=== PATIENT | female | born 1995 | race Caucasian/White ===

== ENCOUNTER 2017-07-02 23:14 | Emergency (ER) | payer BC ==
[~2017-07-02] VITALS: Ht 167.6 cm; Wt 54.5 kg
[2017-07-02 23:16] VITALS: BP 130/79; PULSE 104; RESP 16; TEMP 98.8; O2SAT 100
[2017-07-02] MEDS ORDERED: ZOFR4TAB PO (23:22)
--- NOTE | 2017-07-03 00:11 | PD ---
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 for pelvic ultrasound to rule out ectopic . As per patient, this is her first . Reports that her first day of her last menstrual cycle was May 05, 2017 - she is a little less than 9 weeks at this time. Patient reports that she has been having intermittent RLQ abdominal cramping with some vaginal spotting for the past 2 weeks. Patient had an initial workup by Dr. Canales at [facility], HCG quant is 96,981. Patient was sent to [facility] for pelvic ultrasound [facility] Past Medical History Medical History: Denies Significant Hx Reproductive: Yes (OVARIAN CYSTS) ?: Unknown LMP: 05/05/2017 Past Surgical History Surgical History: No Previous Surgery Social History Alcohol Use: No Tobacco Use: No Substance Use: No Allergies-Medications (Allergen,Severity, Reaction): Coded Allergies: No Known Allergies (Unverified , 07/02/17) Reported Meds & Prescriptions Reported Meds & Active Scripts Active Reported Zofran (Ondansetron HCl) 4 Mg Tab 4 Mg PO Q12HR PRN Review of Systems General / Constitutional: No: Fever Eyes: No: Visual changes HENT: No: Headaches Cardiovascular: No: Chest Pain or Discomfort Respiratory: No: Shortness of Breath Gastrointestinal: Positive: Abdominal Pain Genitourinary: Positive: Pelvic Pain, Vaginal Bleeding, No: Dysuria, Discharge Musculoskeletal: No: Pain Skin: No Rash Neurologic: No: Weakness Psychiatric: No: Depression Endocrine: No: Polydipsia Hematologic/Lymphatic: No: Easy Bruising Physical Exam Narrative GENERAL: mild distress SKIN: Focused skin assessment warm/dry. HEAD: Atraumatic. Normocephalic. EYES: Pupils equal and round. No scleral icterus. No injection or drainage. ENT: No nasal bleeding or discharge. Mucous membranes pink and moist. NECK: Trachea midline. No JVD. CARDIOVASCULAR: Regular rate and rhythm. No murmur appreciated. RESPIRATORY: No accessory muscle use. Clear to auscultation. Breath sounds equal bilaterally. GASTROINTESTINAL: Abdomen soft, non-tender, nondistended. Hepatic and splenic margins not palpable. MUSCULOSKELETAL: No obvious deformities. No clubbing. No cyanosis. No edema. NEUROLOGICAL: Awake and alert. No obvious cranial nerve deficits. Motor grossly within normal limits. Normal speech. PSYCHIATRIC: Appropriate mood and affect; insight and judgment normal. Data Data Last Documented VS Vital Signs Date Time Temp Pulse Resp B/P (MAP) Pulse Ox O2 Delivery O2 Flow Rate FiO2 07/02/17 23:16 98.8 104 16 130/79 (96) 100 Room Air Orders Orders Us Pelvis (Ques Pr/Ect)W Trans (07/02/17 ) Gc And Chlamydia Pcr (07/03/17 00:07) Iv Access Insert/Monitor (07/03/17 00:09) Ecg Monitoring (07/03/17 00:09) Oximetry (07/03/17 00:09) Sodium Chlor 0.9% 1000 Ml Inj (Ns 1000 M (07/03/17 00:15) Ceftriaxone Inj (Rocephin Inj) (07/03/17 00:15) MDM Medical Decision Making Medical Screen Exam Complete: Yes Emergency Medical Condition: Yes Medical Record Reviewed: Yes Interpretation(s) Vital Signs Date Time Temp Pulse Resp B/P (MAP) Pulse Ox O2 Delivery O2 Flow Rate FiO2 07/02/17 23:16 98.8 104 16 130/79 (96) 100 Room Air Differential Diagnosis Ectopic versus threatened miscarriage Narrative Course During the course of the patients emergency department visit, the patients history, examination, and differential diagnosis were reviewed with the patient. The patient was placed on a diagnostic cardiac sonographer with oximetry and frequent blood pressure monitoring. The patient had an IV access obtained and blood work sent for analysis. The patient was initially provided IVF The patients laboratory studies were reviewed and remarkable for WBC 8.6, hemoglobin 12.5, hematocrit 35.8, platelets 273 Sodium 139, potassium 3.3, carbon dioxide 25, BUN 9, creatinine 0.60 HCG Quant 96,981 UA positive for moderate bacteria, 3-5 white blood cells, negative nitrites, negative leuk esterase urine culture sent. Patient was given 1 dose of IV antibiotics in the emergency room for treatment of possible UTI. Radiology studies were reviewed and remarkable for: pending and signed out to physician at change of shift Diagnosis Primary Impression: UTI (urinary tract infection) Patient Instructions: General Instructions Additional Instructions: Please provide patient with a copy of their lab work and studies at discharge* * Please follow up with your primary care doctor in 2-3 days Return to the ER if symptoms worsen or progress Return to the ER as needed Pelvic rest until you are seen and cleared by your trestle builder Med/Other Pt SpecificInfo: Prescription(s) given Narcisa Gonzalez DO Jul 03, 2017 00:11
[2017-07-03] MEDS ORDERED: SODIUM CHLOR 0.9% 1000 ML INJ 1,000 ML IV ONE (00:15)
[2017-07-03] MEDS ORDERED: cefTRIAXone INJ 1,000 MG in SODIUM CHLORIDE 0.9% INJ 100 ML IV ONE (00:15)
[2017-07-03] MEDS ORDERED: MACR100C2 PO (02:35)
--- NOTE | 2017-07-03 02:35 | PD ---
Physical Exam Narrative Patient was seen by ED physician and signed out to me. Data Data Last Documented VS Vital Signs Date Time Temp Pulse Resp B/P (MAP) Pulse Ox O2 Delivery O2 Flow Rate FiO2 07/03/17 02:55 07/02/17 23:16 98.8 104 16 100 Room Air Orders Orders Us Pelvis (Ques Pr/Ect)W Trans (07/02/17 ) Gc And Chlamydia Pcr (07/03/17 00:07) Iv Access Insert/Monitor (07/03/17 00:09) Ecg Monitoring (07/03/17 00:09) Oximetry (07/03/17 00:09) Sodium Chlor 0.9% 1000 Ml Inj (Ns 1000 M (07/03/17 00:15) Ceftriaxone Inj (Rocephin Inj) (07/03/17 00:15) Ed Discharge Order (07/03/17 02:31) Labs Laboratory Tests Test 07/03/17 00:25 Chlamydia trachomatis DNA (PCR) NOT DETECTED Neisseria gonorrhoeae DNA (PCR) NOT DETECTED MDM Supervised Visit with [facility]: No Diagnosis Primary Impression: Pelvic pain during Additional Impression: Bacteriuria Patient Instructions: General Instructions Additional Instruction: Please provide patient with a copy of their lab work and studies at discharge* * Please follow up with your primary care doctor in 2-3 days Return to the ER if symptoms worsen or progress Return to the ER as needed Pelvic rest until you are seen and cleared by your oven drier tender Return if increasing pelvic pain, increase vaginal bleeding. Scripts Nitrofurantoin Monohydrate Macrocrystals (Macrobid) 100 Mg Cap 100 MG PO BID for Infection, #14 CAP 0 Refills Prov: Saroj Sellers MD 07/03/17 Disposition: 01 DISCHARGE HOME Condition: Stable Saroj Sellers MD Jul 03, 2017 02:35
--- NOTE | 2017-07-03 02:57 | RADRPT ---
EXAM DATE/TIME: 07/03/2017 01:58 [place] COMPARISON: No previous studies available for comparison. INDICATIONS : Pelvic pain and vaginal spotting. LAB(S): Beta-hC MEDICAL HISTORY : . Ovarian cysts. SURGICAL HISTORY : None. ENCOUNTER: Initial ACUITY: 1 day PAIN SCORE: 3/10 LOCATION: Bilateral pelvis MEASUREMENTS: UTERUS: 10.4 x 5.9 x 8.8 cm ENDOMETRIAL STRIPE: 12 mm RIGHT OVARY: 3.1 x 1.8 x 1.7 cm LEFT OVARY: 3.3 x 2.6 x 2.6 cm FREE FLUID: No CROWN RUMP LENGTH: 1.5 cm = 7 WKS 6 DAYS FHR: 169 BPM FINDINGS: Gestational sac, yolk sac and pole seen in the uterine cavity. [place]-rump length is approximate ly 1.52 cm, gestational age 7 weeks 6 days. heart tones are demonstrated. There is an approxima tely 4.2 x 1.1 x 1.1 cm heterogeneous fluid collection adjacent to the gestational sac compatible wit h a subchorionic hemorrhage. 16mm left ovarian cyst. The right ovary is normal. There is no free fluid. CONCLUSION: 1. Single, viable intrauterine at approximate 7 weeks 6 days gestational age. 2. Subchorionic hemorrhage. 3. 16mm corpus luteal cyst of the left nerve root. 4. Normal right ovary. 5. No free fluid. John Suh MD on July 03, 2017 at 2:54 Board Certified Radiologist. This report was verified electronically.
== END 2017-07-03 02:56 | disposition home or self-care (01) ==
LOC: NEPD 23:14 → NEPC 07-03 02:56
DX: O26.891 Other specified pregnancy related conditions, first trimester (principal); O23.41 Unspecified infection of urinary tract in pregnancy, first trimester; O34.81 Maternal care for other abnormalities of pelvic organs, first trimester; N83.202 Unspecified ovarian cyst, left side; Z3A.01 Less than 8 weeks gestation of pregnancy
CPT/HCPCS: 76700; 76817; 80053; 81001; 84702; 85025; 87086; 87491; 87591; 96360; 96365; 96366; 99284; 99285; J0696; J7030

== ENCOUNTER 2017-08-17 17:35 | Inpatient (IN) | payer BC, MEDICAID, OTHER ==
[~2017-08-17] VITALS: Ht 167.6 cm; Wt 62.0 kg
[~2017-08-17 17:35] MED LIST: MACR100C2 PO; ZOFR4TAB PO; ZOLO50TA PO
[2017-08-17 18:18] VITALS: BP 112/65; PULSE 77; RESP 15; O2SAT 99
--- NOTE | 2017-08-17 18:41 | PD ---
HPI Chief Complaint: Suicide Ideation/Attempt Time Seen by Provider: 18:30 Travel History International Travel<30 days: No Contact w/Intl Traveler<30days: No Traveled to known affect area: No History of Present Illness HPI Patient seen and examined by me, transferred from [facility] for suicidal ideation and planning, she is currently under a voluntary status of 15 weeks . She states that she was thinking about taking a bunch of pills at home today. Calm and cooperative with exam she denies any chest pain shortness of breath abdominal pain nausea vomiting PFSH Past Medical History Depression: Yes Reproductive: Yes (OVARIAN CYSTS) ?: Social History Alcohol Use: No Tobacco Use: No Substance Use: No Allergies-Medications (Allergen,Severity, Reaction): Coded Allergies: No Known Allergies (Unverified , 08/17/17) Reported Meds & Prescriptions Reported Meds & Active Scripts Active Reported Zoloft (Sertraline HCl) 50 Mg Tab 50 Mg PO DAILY Zofran (Ondansetron HCl) 4 Mg Tab 4 Mg PO Q12HR PRN Review of Systems Except as stated in HPI: all other systems reviewed are Neg Physical Exam Narrative GENERAL: Well-developed and nourished in no obvious distress SKIN: Focused skin assessment warm/dry. HEAD: Atraumatic. Normocephalic. EYES: Pupils equal and round. No scleral icterus. No injection or drainage. ENT: No nasal bleeding or discharge. Mucous membranes pink and moist. NECK: Trachea midline. No JVD. CARDIOVASCULAR: Regular rate and rhythm. No murmur appreciated. RESPIRATORY: No accessory muscle use. Clear to auscultation. Breath sounds equal bilaterally. GASTROINTESTINAL: Abdomen soft, non-tender, nondistended. Hepatic and splenic margins not palpable. Gravid abdomen MUSCULOSKELETAL: No obvious deformities. No clubbing. No cyanosis. No edema. NEUROLOGICAL: Awake and alert. No obvious cranial nerve deficits. Motor grossly within normal limits. Normal speech. PSYCHIATRIC: Depressed mood, normal affect, endorses suicidal ideation with planning, denies audiovisual hallucinations. Data Data Last Documented VS Vital Signs Date Time Temp Pulse Resp B/P (MAP) Pulse Ox O2 Delivery O2 Flow Rate FiO2 08/17/17 18:18 77 15 112/65 (81) 99 Orders Orders Psych Screen (08/17/17 18:13) Diet Regular Basic (2/15/18 Breakfast) MDM Medical Decision Making Medical Screen Exam Complete: Yes Emergency Medical Condition: Yes Differential Diagnosis Suicidal ideation with planning, , ectopic unlikely. Narrative Course Patient seen and examined by me, has already been seen and evaluated at [facility], 15 weeks , she has no complaints of abdominal pain vaginal bleeding vaginal discharge, already medically cleared by ER physician there and transferred here for psychiatric evaluation. Her labs were drawn at [facility]. At this time she has no physical complaints and remissions to remain under a voluntary status and understands she will wait until the morning. She is medically cleared for psychiatric evaluation and disposition. Please see previous providers notes from [facility] for further information Diagnosis Primary Impression: Suicidal ideation Condition: Stable Luis M Quezada MD Aug 17, 2017 18:41
--- NOTE | 2017-08-18 09:46 | PD.CONS ---
History & Physical H&P OB consult This is 22-year-old white female at [address] Joseph was for obstetric care now presents as a transfer from [place] for admission to the psych unit for evaluation and therapy of suicidal ideation with Tylenol, she's been cleared medically [place] was transferred here for admission voluntarily. No obstetric problems at this time Exam- uterus size equal dates nontender no vaginal bleeding she has had minimal vaginal discharge. Impression--15 week intrauterine with suicidal ideation now in the psychiatric lees Plan-check obstetric ultrasound patient may be given antipsychotic medications as needed, would avoid lithium at is as it is teratogenic otherwise of most of the medications can be used as needed, will notify Dr. Joseph that her patient is in the hospital Blake Perez II, MD Aug 18, 2017 09:46
[2017-08-18 16:39] VITALS: BP 118/71; PULSE 86; RESP 17; TEMP 98.1
[2017-08-19 06:16] VITALS: BP 104/60; PULSE 86; RESP 18; TEMP 97.6; O2SAT 99
[2017-08-19] MEDS ORDERED: MAGNESIUM HYDROXIDE SUSP 30 ML CUP PO PRN (14:00)
[2017-08-19] MEDS ORDERED: ACETAMINOPHEN 325 MG TAB PO PRN (14:00)
[2017-08-19] MEDS ORDERED: ALUMINUM/MAGNESIUM/SIMETH 30 ML CUP PO PRN (14:00)
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
[2017-08-19 18:00] VITALS: BP 119/71; PULSE 93; RESP 14; TEMP 98.2; O2SAT 100
--- NOTE | 2017-08-19 23:35 | EKG ---
Date Performed: 08/19/2017 Time Performed: 08:18:19 PTAGE: 22 years EKG: Sinus rhythm INCOMPLETE RIGHT BUNDLE BRANCH BLOCK BORDERLINE ECG NO PREVIOUS TRACING DOCTOR: Cristin Phan Interpretating Date/Time 08/19/2017 23:34:47
[2017-08-20] MEDS: MULTIVIT/MIN/PREN/FOL AC/IRON PRENATAL TAB PO SCH (08:59)
[2017-08-20] MEDS: SERTRALINE HCL 50 MG TAB PO SCH (08:59)
--- NOTE | 2017-08-20 12:40 | HHI.PYPN ---
Subjective Chief Complaint: depression vague suicidality Remarks Patient was seen and case discussed with nursing. Patient is pleasant and cooperative with exam. She is quite anxious during the interview and says she has never been in such a situation before. She does minimizes her suicidal ideation before admission. She says she gets fleeting suicidal ideation couple hours and goes away. She has not had any such episodes today. Describes various stressors including . This tolerating her medications well. Describes her mood today is "fine." He is eating and sleeping well per patient Mental Status Examination Appearance: Appropriate Consciousness: Alert Orientation: x4 Motor Activity: Normal gait Speech: Unremarkable Language: Adequate Fund of Knowledge: Adequate Attention and Concentration: Adequate Memory: Unremarkable Mood: Anxious, Other (euthymic to moderately dysphoric) Affect: Anxious Thought Process & Associations: Intact Thought Content: Appropriate Hallucination Type: None Delusion Type: None Suicidal Ideation: No (denies today) Suicidal Plan: No Suicidal Intention: No Homicidal Ideation: No Homicidal Plan: No Homicidal Intention: No Insight: Adequate Judgment: Adequate Results Vitals/IOs Vital Signs Date Time Temp Pulse Resp B/P (MAP) Pulse Ox O2 Delivery O2 Flow Rate FiO2 08/19/17 18:00 98.2 93 14 119/71 (87) 100 Assessment & Plan Problem List: (1) Adjustment disorder with depressed mood ICD Codes: F43.21 - Adjustment disorder with depressed mood (2) Intrauterine ICD Codes: Z34.90 - Encounter for supervision of normal , unspecified , unspecified trimester Assessment & Plan Continue current treatment plan Justification for Cont. Inpt. Patient would decompensate in a less restrictive setting Request HC Surrog/Guard Advoc?: No Wang Cordon DO Aug 20, 2017 12:40
[2017-08-20 18:42] VITALS: BP 111/61; PULSE 90; RESP 18; TEMP 97.5; O2SAT 99
[2017-08-21 05:46] VITALS: BP 114/66; PULSE 80; RESP 18; TEMP 97.8; O2SAT 98
[2017-08-21] MEDS: MULTIVIT/MIN/PREN/FOL AC/IRON PRENATAL TAB PO SCH (09:33)
[2017-08-21] MEDS: SERTRALINE HCL 50 MG TAB PO SCH (09:33)
--- NOTE | 2017-08-21 15:14 | HHI.PYPN ---
Subjective Chief Complaint: depression vague suicidality Remarks Patient was seen and case discussed with nursing. Patient is bright and cheerful during the interview. She continues to improve. He social on the unit. She is compliant with her medications and doing well. Eating and sleeping well. He is goal oriented and goals include going back to school emailing her professors Mental Status Examination Appearance: Appropriate Consciousness: Alert Orientation: x4 Motor Activity: Normal gait Speech: Unremarkable Language: Adequate Fund of Knowledge: Adequate Attention and Concentration: Adequate Memory: Unremarkable Mood: Anxious, Other (euthymic to moderately dysphoric) Affect: Anxious Thought Process & Associations: Intact Thought Content: Appropriate Hallucination Type: None Delusion Type: None Suicidal Ideation: No (denies today) Suicidal Plan: No Suicidal Intention: No Homicidal Ideation: No Homicidal Plan: No Homicidal Intention: No Insight: Adequate Judgment: Adequate Results Vitals/IOs Vital Signs Date Time Temp Pulse Resp B/P (MAP) Pulse Ox O2 Delivery O2 Flow Rate FiO2 08/21/17 05:46 97.8 80 18 114/66 (82) 98 Intake and Output 08/21/17 08/21/17 08/22/17 08:00 16:00 00:00 Intake Total 480 ml Balance 480 ml Assessment & Plan Problem List: (1) Adjustment disorder with depressed mood ICD Codes: F43.21 - Adjustment disorder with depressed mood (2) Intrauterine ICD Codes: Z34.90 - Encounter for supervision of normal , unspecified , unspecified trimester Assessment & Plan Continue current treatment plan Justification for Cont. Inpt. Patient would decompensate in a less restrictive setting Request HC Surrog/Guard Advoc?: No Wang Cordon DO Aug 21, 2017 15:14
[2017-08-21 19:02] VITALS: BP 124/66; PULSE 98; RESP 18; TEMP 98.5; O2SAT 100
[2017-08-22 05:52] VITALS: BP 100/62; PULSE 71; RESP 16; TEMP 97.9; O2SAT 99
[2017-08-22] MEDS: MULTIVIT/MIN/PREN/FOL AC/IRON PRENATAL TAB PO SCH (08:49)
[2017-08-22] MEDS: SERTRALINE HCL 50 MG TAB PO SCH (08:49)
[2017-08-22] MEDS ORDERED: PADIMATE (CHAPSTICK) 4.5 GM TUBE TOPICAL PRN (10:30)
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
[2017-08-22] MEDS ORDERED: PREN29TA PO (14:49)
[2017-08-22] MEDS ORDERED: ZOLO50TA PO (14:49)
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
== END 2017-08-22 17:50 | disposition home or self-care (01) | DRG 781 ==
LOC: NEPD 17:35 → NEDA 08-18 06:10 → H260 08-18 14:40
PROVIDERS: ADMIT Psychiatry & Neurology Psychiatry; ATTEND Psychiatry & Neurology Psychiatry
DX: O99.342 Other mental disorders complicating pregnancy, second trimester (principal); R45.851 Suicidal ideations; F43.21 Adjustment disorder with depressed mood; O9A.212 Injury, poisoning and certain other consequences of external causes complicating pregnancy, second trimester; T39.1X2A Poisoning by 4-Aminophenol derivatives, intentional self-harm, initial encounter; Z3A.15 15 weeks gestation of pregnancy; Z91.410 Personal history of adult physical and sexual abuse; Z91.5 Personal history of self-harm
CPT/HCPCS: 76805; 93005